=== PATIENT | male | born 1950 | race Caucasian/White ===

== ENCOUNTER → 2017-03-26 | Outpatient (CLI) | payer OTHER, MEDICARE ==
[~2017-03-26] MED LIST: ALBUTEROL20 ml INH; ASPIRIN81 M2 PO; GLUCOTROL10 MG PO; HYDROCODON-ACE1 EAC5 PO; LASIX PO; LIPITOR40 MG PO; METFORMIN PO; OMEPRAZOLE20 M1 PO; SYMBICORT 160/4.6 G1 INH; TOPROL XL200 MG PO; ZESTRIL5 MG PO; ZOLOFT100 MG PO
--- NOTE | ~2017-03-26 | CO ---
Unit #: [id number] #: [id number] Patient: SHAZIA ZAMORA [id number] [address] [place], [place] [address] [id number] MR#: [id number] NAME: SHAZIA ZAMORA ROOM: Age: 67 Sex: M Admission Date: 03/26/2017 : 1950 Attending Physician: Porfirio Helm M.D. Primary Care Physician: Torsten Doctor Not In System Consultation Date: 03/26/2017 CONSULTATION REPORT REASON FOR CONSULTATION Preoperative medical evaluation prior to right total knee arthroplasty scheduled by Dr. Helm for 04/07/17. HISTORY OF PRESENT ILLNESS The patient is a 67-year-old male who presents to preprocedural screening for the reason as indicated above. Other than complaints of right knee pain at the time of this interview, he has no concerns or issues. He denies upper chest, upper back, arm, neck or jaw pain or pressure. He denies shortness of breath and denies severe dyspnea on exertion with activities of daily living. He denies dyspnea on exertion, paroxysmal nocturnal dyspnea and/or sleep apnea. He denies lightheadedness, dizziness, pre-syncope, syncope, palpitations. He was recently evaluated by his cardiology nurse practitioner, Charisse Tanner, for [facility]. The patient completed a Holter monitor with recommendation that he repeat the Holter monitor evaluation for a total time of 2 weeks. That has not been initiated yet. The patient states he was not given preoperative cardiac clearance. He has been evaluated by Dr. Helm and scheduled for the above referenced procedure. PAST MEDICAL HISTORY 1. Osteoarthritis. 2. High risk of sleep apnea per STOP-Bang protocol without previous MARCO evaluation. 3. Diabetes mellitus, non-insulin dependent. 4. History of asthma. 5. Hyperlipidemia. 6. Coronary artery disease with history of combined systolic/diastolic congestive heart failure, history of ischemic cardiomyopathy status post AICD and permanent pacemaker placement status post CABG x1 in 2010, status post stent x1 in 2012 and status post bioprosthetic aortic valve replacement surgery. 7. Depression. 8. History of tobacco use. The patient has not smoked tobacco for the past 18 years but does chew tobacco and is chewing it at the time of this evaluation today. 9. COPD with emphysema. 10. History of CVA per CT of the head report and patient report. 11. BPH. 12. History of urethral strictures, and patient self catheterizes intermittently but not daily. 13. GERD. 14. Possible urinary tract infection - asymptomatic. 15. Questionable chronic kidney disease with most recent creatinine Unit #: [id number] #: [id number] Patient: SHAZIA ZAMORA baseline of 1.6 on records dated 03/19/17. 16. History of pulmonary hypertension. 17. Recent fall backward. 18. Insomnia. 19. Chronic pain syndrome. PAST SURGICAL HISTORY 1. Left total knee arthroplasty. 2. CABG x1 vessel and bioprosthetic aortic valve replacement 2010. 3. Tonsillectomy. 4. AICD and permanent pacemaker placement. 5. C5-C6 fusion. 6. Back surgery. 7. Cardiac catheterization x1 and stent placement in 2012. NOTE: The patient denies personal or family history of complications to anesthesia. SOCIAL HISTORY Chews tobacco. Rarely consumes ETOH and denies illicit drug use. FAMILY HISTORY Per review of Dr. Helm's office note and confirmation with the patient - diabetes, hypertension, stroke and myocardial infarction. REVIEW OF SYSTEMS The patient reports that it is time for him to have a new eye examination and that he has one every year about this time. He denies urinary frequency, malodorous urine, dysuria, hematuria. He intermittently straight caths, which he states he does "monthly" and states he should do this more often. The patient states that it has been at least 3 years, possibly closer to 5 years, since he had the battery replaced in his AICD permanent pacemaker. Per his report, there is "an issue with the battery," and he is following with cardiology in this regard. A 10-point review of systems was conducted and otherwise negative except as indicated under history of present illness above. PHYSICAL EXAMINATION GENERAL: A 67-year-old male, awake, alert, in no acute distress. VITAL SIGNS: Temperature 97.8, heart rate 81, respiratory rate 18, blood pressure 120/79, oxygen saturation 96% on room air. HEENT: Atraumatic, normocephalic. Sclerae anicteric. No discharge from eyes, ears or nares. LYMPH: No preauricular, postauricular, tonsillar, submental, anterior or posterior cervical or infraclavicular adenopathy. ENDOCRINE: No thyromegaly, thyroid nodules or tenderness. RESPIRATORY: Clear to auscultation in all garza bilaterally without wheezes, rhonchi or rales. CARDIOVASCULAR: S1, S2. Regular rate and rhythm without murmur or rub. No carotid bruits. GI: Bowel sounds positive x4. Soft, nontender, nondistended. EXTREMITIES: No edema, cyanosis or clubbing. Calves soft and nontender. NEUROLOGIC: Alert and oriented x3. Speech clear. Cranial nerves II-XII grossly intact. Follows directions for examination. DIAGNOSTIC STUDIES LABORATORY: WBC 10.5, hemoglobin 13.2, hematocrit 40.7, platelets Unit #: [id number] #: [id number] Patient: SHAZIA ZAMORA 228,000. Hemoglobin A1C 7.8, sodium 138, potassium 4.6, chloride 101, CO2 27, glucose 188, BUN 35, creatinine 1.7, calcium 9.3, AST 25, ALT 27, alkaline phosphatase 63, bili total 0.8, total protein 8, albumin 4.6. PT 10.1, INR 1. Urinalysis - Leukocyte esterase 2+, nitrate negative, protein trace, RBCs 0-2, WBCs 25-50, bacteria negative, squamous cell occasional, (1) 2-5. Urine culture and sensitivity pending at this time. Blood type A+. Antibody screen negative. MRSA nasal swab report pending at this time. IMAGING: Two view chest x-ray report, date of study 01/10/17. Impression - No acute cardiopulmonary disease. CARDIOLOGY: Twelve-lead EKG, date of study 03/19/17 - Confirmed report by Trey Barksdale M.D. - Abnormal EKG, AV sequential paced rhythm. Date of report, 03/24/17. Interpretation - No significant abnormalities. Recommendations - Consider ordering a 2-week event monitor. Two week event monitor report pending at this time. Two-D echocardiogram report, date of study 09/2016. Interpretation summary - Estimated LVEF 45% to 50%. Bioprosthetic aortic valve with [id number] tricuspid regurgitation. Gradient abnormal for prosthetic aortic valve with no change from previous study. Please refer to report on patient's chart. Lexiscan stress test, date of exam 09/24/12. Conclusions - No significant regadenoson-induced ischemia. Small anterior septal apical infarct. Fbbrd-ty-emtnecws inferior septal infarct. Jibwoxfn-[id number] (2) septal motion. LVEF 34%. ASSESSMENT/PLAN 1. The patient is a 67-year-old male who presents to preprocedural screening for preoperative medical evaluation prior to right total knee arthroplasty. The patient's Mckeon Revised Cardiac Risk Index is equal to 2.5% to 5.4% based on history of myocardial infarction and stroke. This represents the patient's perioperative risk of fatal or nonfatal myocardial infarction, cardiopulmonary arrest, arrhythmias or pulmonary edema. This has been discussed in detail with the patient, and he wishes to proceed with surgery as scheduled at this time. Please note because of the patient's significant and current cardiac history, preoperative cardiac clearance through the [facility] is recommended. 2. Coronary artery disease. History of ischemic cardiomyopathy, history of combined systolic/diastolic CHF status post AICD - permanent pacemaker placement, status post CABG x1, status post stent x1 and history of bioprosthetic aortic valve replacement. Patient is asymptomatic today. He shows no signs or symptoms of acute congestive heart failure at this time. Again, preoperative cardiac clearance is pending. 3. High risk for obstructive sleep apnea per STOP-Bang protocol given the patient's age, hypertension and gender. I have recommended that the patient have preoperative MARCO evaluation and preoperative pulmonary clearance. This has been discussed with the patient, and he is to take an order to his primary care physician at the [facility] for coordination of both preoperative cardiac and pulmonary clearance. 4. Diabetes mellitus. The patient is non-insulin dependent. His Unit #: [id number] #: [id number] Patient: SHAZIA ZAMORA hemoglobin A1C is 7.8. Will monitor perioperative blood sugars, hold oral hypoglycemics pending confirmation of oral intake postoperatively. Recommend constant carbohydrate diet and low-dose sliding scale insulin based on Accu-Cheks a.c. and h.s. 5. Hyperlipidemia. Will continue Lipitor postoperatively. 6. History of depression. Stable at this time. Will continue Zoloft perioperatively. 7. COPD with history of tobacco use. The patient's last chest x-ray was in normal range, and he is without signs or symptoms of pulmonary concerns today. 8. Chewing tobacco use. The patient has been advised to discontinue this and advised regarding the increased risk of oral and throat cancer with chewing tobacco use. His oral exam is negative today. 9. History of lacunar CVA per patient report and per [facility] medical record review. The patient reports his only resultant issue is disequilibrium, which has resulted in backward falls. 10. BPH. The patient states that he has history of urinary stricture and has had urethral surgery, for which he intermittently caths. Apparently he caths only once per month. The patient will be at high risk for postoperative urinary retention and possible urology consult postop. Will monitor for signs and symptoms and order if indicated. 11. GERD. Consider proton pump inhibitor postoperatively. 12. Osteoarthritis. 13. History of chronic pain syndrome status post neck and back fusions. 14. Pyuria. Questionable urinary tract infection. The patient is completely asymptomatic. Will await urine culture and sensitivity report prior to prescribing antibiotic. 15. Chronic kidney disease with creatinine baseline approximately 1.6 based on information available today. Will monitor the patient's renal function postoperatively and consult nephrology if indicated. The patient may ultimately require medication adjustments, as he is being treated with an ROSENDO inhibitor, is on metformin and Lasix daily. 16. History of pulmonary hypertension. 17. Recent backward fall resulting in shoulder pain. Stable. 18. Insomnia. Patient, again, is at risk for sleep apnea. Sleep apnea evaluation and pulmonary clearance is pending. At this point, will avoid sedatives and medications, such as Ambien, which could depress respiratory status. Thank you for allowing us to participate in the care of this patient. We will gladly follow him postoperatively for medical management pending preoperative cardiac clearance, obstructive sleep apnea eval and preoperative pulmonary clearance. Please note, I have recommended that the patient be placed on a phototypesetting equipment monitor postoperatively given his cardiac history. Dictated by... Deisy Morales A.P.R.N. for Emilie Kapadia/gita TD: 03/26/2017 16:03 JOB #: [id number] Unit #: [id number] #: [id number] Patient: SHAZIA ZAMORA CONSULTATION REPORT Page 1 of 1 X Deisy Morales APRN CONSULTATION REPORT
[2017-03-26 08:33] LABS: HEMATOCRIT 40.7 % (38.0-50.0); HEMOGLOBIN 13.2 gm/dL (13.0-16.0); MEAN CELL VOLUME 92.4 FL (83-96); MEAN CORPUSCULAR HGB CONC 32.5 g/dL (30-36); MEAN PLATELET VOLUME 9.8 FL (6.5-11.5); RED BLOOD COUNT 4.4 X10e (3.90-5.60); RED CELL DISTRIBUTION WIDTH 14.5 % (11.0-15.5); WHITE BLOOD COUNT 10.5 X10e3 (4.0-10.5)
[2017-03-26 08:38] LABS: URINE APPEARANCE CLEAR; URINE BILIRUBIN NEG (NEG); URINE BLOOD NEG (NEG); URINE COLOR YELLOW; URINE GLUCOSE NEG (NEG); URINE KETONE NEG (NEG); URINE LEUKOCYTE ESTERASE 2+ (NEG); URINE NITRATE NEG (NEG); URINE PROTEIN TRACE (NEG); URINE SPECIFIC GRAVITY 1.018 (1.003-1.035); URINE UROBILINOGEN 0.2 MG/DL (NEG)
[2017-03-26 08:40] LABS: CULTURE INDICATED? YES; URBCS1 AUWI 0-2 /[HPF] (0-2); URINE BACTERIA AUWI NEG (NEGATIVE); URINE SQUAMOUS EPITHELIAL CELL OCC /[HPF]; UWBCS1 AUWI 25-50 (0-5)
[2017-03-26 08:45] LABS: PROTHROMBIN TIME (PATIENT) 10.1 SECONDS (9.6-11.5)
[2017-03-26 09:00] LABS: URINE SOURCE CLEAN CATCH
[2017-03-26 09:48] LABS: ALBUMIN SERUM 4.6 g/dL (3.5-5.0); BILIRUBIN,TOTAL 0.8 mg/dL (0.2-2.0); BUN/CREATININE RATIO 20.58; CALCIUM SERUM 9.3 mg/dL (8.4-10.2); CREATININE SERUM 1.7 mg/dL (0.6-1.4); GLOM FILT RATE Estimated 41.1 mL/min (>60); POTASSIUM 4.6 mmol/L (3.5-5.1)
[2017-03-26 13:49] LABS: AMPHETAMINE NEG (NEG); BARBITURATES NEG (NEG); BENZODIAZEPINES NEG (NEG); COCAINE NEG (NEG); MARIJUANA NEG (NEG); OPIATES POS (NEG); TRICYCLIC ANTIDEPRESSANTS NEG (NEG); U METHADONE NEG (NEG)
== END | disposition home or self-care (01) ==
LOC: CAMB 07:22
PROVIDERS: Orthopaedic Surgery
DX: Z01.812 Encounter for preprocedural laboratory examination (principal); M17.11 Unilateral primary osteoarthritis, right knee; E11.9 Type 2 diabetes mellitus without complications; I10 Essential (primary) hypertension; J45.909 Unspecified asthma, uncomplicated; F32.9 Major depressive disorder, single episode, unspecified; G47.9 Sleep disorder, unspecified; E78.5 Hyperlipidemia, unspecified; J44.9 Chronic obstructive pulmonary disease, unspecified; Z79.01 Long term (current) use of anticoagulants
CPT/HCPCS: 36415; 80053; 80307; 81003; 83036; 85027; 85610; 86850; 86900; 86901; 87070; 87086